=== PATIENT | male | born 1960 | race Caucasian/White ===

== ENCOUNTER 2023-12-24 05:56 | Observation (INO) ==
--- NOTE | 2023-12-21 09:40 | Anesthesiology Consultation ---
Date of Service December 21, 2023 Assessment & Plan (1) Encounter for pre-operative examination: Chart Review Chart Review: Acceptable Risk for Surgery and Patient NOT seen in Pre Admission Testing -Patient seen by cardio for routine f/u 08/04/23. Per note, pt 'doing well since ablation' for afib... 'well compensated from heart failure perspective'... 02/2023 ECHO reviewed which showed improved LVEF from previous. Infectious Disease screening: Per PAT nursing assessment on 12/16/23, No known infectious disease contacts in past 10 days or current infectious disease symptoms. No recent travel outside the country. History Surgery Operation Date: 12/24/23 12:00 Proposed Procedures p Robotic assisted Laparoscopic Partial Nephrectomy - Right - Phillip Nielsen MD Height/Weight Height: 5 ft 6 in Weight: 115.666 kg Allergies Allergy/AdvReac Type Severity Reaction Status Date / Time bee venom protein (honey bee) Allergy Intermediate Rash Verified 12/16/23 11:48 cortisone Allergy Intermediate Rash Verified 12/16/23 11:48 lisinopril AdvReac Intermediate Cough Verified 12/16/23 11:48 amoxicillin [From Augmentin] AdvReac Unknown Unknown Verified 12/16/23 11:48 clavulanic acid AdvReac Unknown Unknown Verified 12/16/23 11:48 [From Augmentin] Medications Home Medications Medication Instructions Recorded Confirmed Last Taken aspirin 81 mg tablet,delayed 81 mg PO QAM 01/08/21 12/16/23 Unknown release (Adult Low Dose Aspirin) atorvastatin 80 mg tablet (Lipitor) 80 mg PO HS 01/08/21 12/16/23 Unknown losartan 25 mg tablet (Cozaar) 25 mg PO QAM 01/08/21 12/16/23 Unknown nitroglycerin 0.4 mg sublingual 0.4 mg sublingual Q5M PRN Chest 01/08/21 12/16/23 Unknown tablet Pain apixaban 5 mg tablet (Eliquis) 5 mg PO BID 10/21/22 12/16/23 Unknown furosemide 40 mg tablet (Lasix) 40 mg PO QAM 10/21/22 12/16/23 Unknown amiodarone 200 mg tablet 200 mg PO QAM 12/16/23 12/16/23 Unknown Past Medical History Medical History (Updated 12/21/23 @ 10:28 by Kelsey Jacques PA-C) Adrenal nodule pending adrenal labs per urology CAD (coronary artery disease) s/p MS and 1 LAD stent 2017 Dilated cardiomyopathy per most recent cardio note: "likely combination of ischemic and tachycardia mediated, LVEF improved to 45% by echo in 02/2023" HFrEF (heart failure with reduced ejection fraction) ACC/AHA stage C, NYHA class II (per cardio note) History of atrial fibrillation S/P multiple cardioversions and also 1 ablation 11/2022 History of kidney stones Patient states, "I never noticed passing them but they told me I had them" History of placement of stent in LAD coronary artery 1 stent, LAD 2017 (s/p anterior MS) Hx of myocardial infarction 06/2017 [facility] (had 1 LAD stent placed)- Follows Dr Horvath Hyperlipidemia Hypertension Impaired fasting glucose Morbid obesity Prostatitis pt denies Right renal mass Past Family History Family History Father Diabetes Kidney stones Past Surgical History Surgical History (Updated 12/21/23 @ 10:09 by Kelsey Jacques PA-C) H/O arthroscopic knee surgery Right History of ankle surgery right History of cardiac radiofrequency ablation 11/2022 [facility] - Dr. Horvath d/t afib Hx of cardiac cath 1 mid LAD stent 06/2017 Hx of colonoscopy Hx of elbow surgery left S/P cervical spinal fusion 2018 hardware present - Good ROM as per patient (C5-C7 per chart review) S/P lumbar fusion hardware present Social History Smoking Status: Current every day smoker Smoking cigarettes per day: 6-7 Do You Dip or Chew Tobacco: No Hx Alcohol Use: Yes Alcohol type: beer alcohol intake frequency: a few times a month Hx Substance Use: No substance use type: does not use Lab Results Anesthesia Preop Results Results Anesthesia Widget: WBC 11.50 K/uL H 12/02/23 Hgb 15.3 g/dL (14.0-18.0) 12/02/23 Hct 45 % (42.0-52.0) 12/02/23 Plt 281 K/uL (130.0-400.0) 12/02/23 Na 135 mmol/L L 12/02/23 K 3.8 mmol/L (3.5-5.1) 12/02/23 Cl 101 mmol/L (98-107) 12/02/23 CO2 23 mmol/L (21-32) 12/02/23 BUN 9 mg/dL (7-18) 12/02/23 Creat 0.97 mg/dL (0.6-1.4) 12/02/23 Glucose Level 156 mg/dL H 12/02/23 Testing Laboratory Results (will order BSG for AM of surgery) Electrocardiogram Date: 08/04/23 Findings: + NSR @ (67bpm) possible anterior infarct, probably old, low QRS voltage precordial leads. No significant change from 01/27/23 (per cardiology interpretation at visit: 'NSR at 67bpm, anterior infarct, age indeterminate) Chest X-Ray Date: 12/02/23 Findings: + NAD Echocardiogram Date: 03/11/23 EF: 45% LVSF is mildly impaired. There is mild hypokinesis of the septal segment. Akinesis of the apical segment. No significant valve disease. Unable to adequately estimate PASP. Compared to the last study, the EF has improved Other Testing MRI Abdomen 10/19/23: 1. There is a complex partially exophytic cystic mass along the lower pole of the right kidney, associated with a solid mildly complicated/hemorrhagic component anteriorly. Both lesions demonstrate mild interval enlargement. The appearance of these findings in combination is consistent with a Bosniak IIF-III lesion. The overall configuration is most consistent with a low-grade malignancy, somewhat indolent. Recommend urologic surgical consultation/resection. 2. There is a minimally hemorrhagic, mildly enhancing 7-8mm focus within the midpole of the left kidney, sightly more apparent than on prior study, probably incidental hemorrhagic cyst, less likely metastatic focus. 3. There is increasing prominence and mild nodularity of the genu of the left adrenal. Would be difficult to entirely exclude a metastatic focus.
[~2023-12-24 05:56] MED LIST: ALLERGY Noted to ORDERED Medication SCH
[2023-12-24] MEDS: LR 15ML/HR IV SCH (06:39)
[2023-12-24] MEDS ORDERED: fentaNYL citrate PF 100 MCG/2 ML VIAL ONE ×2 (06:59→09:04)
[2023-12-24] MEDS ORDERED: MIDAZOLAM HCL 1 MG/ML 2ML VIAL ONE ×2 (06:59→09:04)
[2023-12-24] MEDS ORDERED: diphenhydrAMINE 50 MG/ML VIAL ONE (07:01)
[2023-12-24] MEDS ORDERED: ROCURONIUM BROMIDE 10 MG/ML 5 ML VIAL IV ONE ×4 (07:01→11:42)
[2023-12-24] MEDS ORDERED: SUCCINYLCHOLINE CHLORIDE 20 MG/ML 10 ML VIAL IV ONE (07:01)
[2023-12-24] MEDS ORDERED: ONDANSETRON INJ 2 MG/ML 2 ML VIAL ONE ×2 (07:01→09:04)
[2023-12-24] MEDS ORDERED: PROPOFOL IV EMULSION 10 MG/ML 20 ML VIAL IV ONE ×2 (07:01→09:04)
[2023-12-24] MEDS ORDERED: DEXAMETHASONE SOD INJ 4 MG/ML VIAL ONE ×2 (07:01→09:04)
[2023-12-24] MEDS ORDERED: GLYCOPYRROLATE 0.2 MG/ML VIAL ONE ×2 (07:01→09:04)
[2023-12-24] MEDS ORDERED: LIDOCAINE 2% 2 ML VIAL/AMP(20MG/ML) INFIL ONE ×2 (07:01→09:04)
--- NOTE | 2023-12-24 07:11 | History & Physical Bridge Note ---
Date of Service December 24, 2023 History & Physical Bridge Note I have examined the patient, reviewed the History & Physical and in the interval since the performance of the History & Physical I have noted the following changes of clinical significance: no changes noted Adrenal labs came back normal. He denies any new symptoms today. We will plan for robot-assisted right partial nephrectomy.
[2023-12-24] MEDS ORDERED: REMIFENTANIL HCL 1 MG VIAL IV ONE (07:13)
[2023-12-24] MEDS ORDERED: Nursing to Pharmacy Communication SCH (07:15)
[2023-12-24] MEDS: ceFAZolin 2000MG 2,000 MG/15 ML SYR IV SCH ×2 (07:30→20:16)
[2023-12-24] MEDS ORDERED: fentaNYL citrate PF 100 MCG/2 ML VIAL IV PRN (07:32)
[2023-12-24] MEDS ORDERED: PROMETHAZINE HCL 6.25 MG in SODIUM CHLORIDE 0.9% 50 ML IV PRN (07:32)
[2023-12-24] MEDS ORDERED: HYDROmorphone INJ 2 MG/ML SYR/VIAL IV PRN (07:32)
[2023-12-24] MEDS ORDERED: ePHEDrine sulfate 50 MG/ML AMP IV PRN (07:32)
[2023-12-24] MEDS ORDERED: ONDANSETRON INJ 2 MG/ML 2 ML VIAL IV PRN ×2 (07:32→14:09)
[2023-12-24] MEDS ORDERED: ATROPINE SULFATE 0.1 MG/ML 10ML SYR IV PRN (07:32)
[2023-12-24] MEDS ORDERED: ePHEDrine sulfate 50 MG/5 ML SYR ONE (08:36)
[2023-12-24] MEDS ORDERED: NEOSTIGMINE METHYLSULFATE 1 MG/ML 10ML VIAL ONE (09:04)
[2023-12-24] MEDS: ceFAZolin 2,000 MG/15 ML IV PUSH IV ONE (09:09)
[2023-12-24] MEDS ORDERED: HYDROmorphone INJ 2 MG/ML SYR/VIAL ONE (10:57)
[2023-12-24] MEDS ORDERED: SUGAMMADEX SODIUM 200 MG/2 ML VIAL IV ONE ×2 (10:58→12:20)
[2023-12-24] MEDS: TISSEEL FIBRIN SEALANT 10ML TOP ONE (11:32)
[2023-12-24] MEDS: FLOSEAL HEMOSTATIC MATRIX 10ML TOP ONE (11:33)
[2023-12-24] MEDS: SURGICEL ABSORB HEMOSTAT 2IN X 14IN TOP ONE (11:33)
[2023-12-24] MEDS: ceFAZolin 2000MG 2,000 MG/15 ML SYR IV ONE (11:50)
[2023-12-24] MEDS: BUPIVACAINE 0.5 % 5 MG/1 ML MPF 30ML VIAL ONE (11:50)
[2023-12-24] MEDS ORDERED: ceFAZolin 330 MG/ML 1 GM VIAL ONE (11:51)
--- NOTE | 2023-12-24 12:11 | Operative Report ---
PG Post Operative Report Pre & Post Diagnosis Operation Date: 12/24/23 07:30 Pre-Op Diagnosis: Right Renal Mass Post-Op Diagnosis: Right Renal Mass I identified the patient and participated in the time-out.: Yes Procedure Operation Date: 12/24/23 07:30 Actual Procedures p Robotic Assisted Laparoscopic Partial Nephrectomy - Right(Right) - Phillip Nielsen MD Surgeon Phillip Nielsen MD Finisher Hand LOR Plaza, LOR Saeed, Tad Euceda DO Estimated Blood Loss 25 Findings See Below Right renal mass overlying right renal cyst, partial nephrectomy was performed. Specimens Right renal mass Drains Damon catheter per urethra Anesthesia Type General Complications none Disposition Accompanied Patient To Recovery: Yes Disposition: Recovery Room Indications This is a 63-year-old male followed by urology for a suspicious renal cyst. On recent imaging this was read as Bosniak 3 and he presents to the OR today for partial nephrectomy and removal of this cyst. Description of Procedure The patient was identified and informed consent was obtained. He was marked on the right side and was brought to the operating room where general anesthesia was initiated. He was placed in a flank position with the right side elevated. All pressure points were carefully padded. A timeout was then performed. A surgical marker was used to draw a line approximately 7 cm to the left of the umbilicus, in the mid clavicular area. Anticipated port sites were marked starting approximately 2 fingerbreadths below the costal margin. Subsequent ports were anticipated to be 6 to 7 cm spaced down this line. An incision was made at the second anticipated site, then dissection was carried down to the fascia. A Veress needle was used to obtain access to the peritoneum. Good position was confirmed with a negative aspiration, appropriate drop test and low opening insufflation pressure. The abdomen was then inflated with CO2 to 15 mmHg. The first robotic port was then placed and the camera was inserted. The abdominal cavity was surveyed. No injury to intra-abdominal contents was appreciated. There were some adhesions in the right lower quadrant as well as near the gallbladder. The remaining 3 robotic ports were placed under direct visualization. A 12 mm blood donor unit assistant port was then placed in the midline above the umbilicus. The robot was then docked. His right lower quadrant adhesions were lysed sharply. I reflected the colon along the white line of Toldt to expose Gerota's fascia. The duodenum was Kocherized. Once the colon was sufficiently reflected, the gonadal vessels and left ureter were identified. These were then dissected cephalad to identify the renal hilum. He had 1 renal artery and 2 renal veins. Adequate windows were dissected to facilitate placement of bulldog clamps on the vessels. I then turned my attention toward the renal mass. On preoperative imaging it had been toward the lower pole and there was a suspicious bulge in Gerota's fascia in this area. Gerota's fascia was incised and the fat was dissected away to expose the renal mass and capsule. The intraoperative ultrasound was then introduced and used to survey this area of the kidney. The suspicious cystic mass was overlying a fairly large, simple appearing cyst. The bulldog clamps were then applied to the renal artery and the renal veins. There was good blanching of the kidney. The renal mass was sharply excised. Approximately 80-90% of the mass was overlying the cyst. Only a small rim of renal parenchyma was taken from the upper medial portion. Once the mass was free from the kidney, renorrhaphy was performed using interrupted 2-0 Vicryl sutures also secured with Hem-o-loks and Lapra-Ty's. There was good hemostasis at this point. The bulldog clips were then removed and there was slight oozing from the resection edge. 1 additional Vicryl suture was used to obtain good hemostasis. Total warm ischemia time was 14 minutes. A layer of Surgicel, Floseal and Tisseel were applied to the resection area and the hilum. The renal mass was placed in a specimen bag. Final survey of the abdomen revealed good hemostasis and no injury to intra-abdominal contents. The robot was dedocked. The specimen was extracted through the blood donor unit assistant port in the midline and was sent for analysis labeled as right renal mass. The incisions were then closed. The extraction site was closed using a deep 0 Vicryl running suture for the fascia. All wounds were anesthetized using 0.5% Marcaine. Skin was closed using running subcuticular 4-0 Monocryl for the extraction site and buried interrupted 4-0 Monocryls for the robot sites. The patient was then awakened from anesthesia and brought to the PACU in stable condition. All sponge and instrument counts were correct at the end of the case. Of note, Christelle HOROWITZ, acted as bedside blood donor unit assistant for the majority of the case, helping with initial positioning, access, retraction, dissection and with closing. LOR Saeed was at the bedside learning how to be the blood donor unit assistant. Tad Euceda DO acted as bedside blood donor unit assistant for the mass excision and renorrhaphy. I attest to the content of the Intraoperative Record and any orders documented therein. Any exceptions are noted below.
[2023-12-24] MEDS: LACTATED RINGER'S 1,000 ML IV SCH (14:05)
[2023-12-24] MEDS ORDERED: HYDROmorphone INJ 0.5 MG/0.5 ML SYR IV PRN ×2 (14:09)
[2023-12-24] MEDS ORDERED: bisacodyL 5 MG TABEC PO PRN (14:09)
[2023-12-24] MEDS ORDERED: oxyCODONE HCL IR 5 MG TAB (IMMEDIATE RELEASE) PO PRN ×3 (14:09)
--- NOTE | 2023-12-24 14:09 | Anesthesiology Progress Note ---
Date of Service December 24, 2023 Anesthesia Post Procedure Vital Signs Vital Signs: Temp Pulse Resp BP Pulse Ox O2 Del Method O2 Flow Rate 12/24/23 13:40 76 21 142/86 H 94 Nasal Cannula 4 12/24/23 13:25 74 18 131/80 93 Nasal Cannula 4 12/24/23 13:05 75 20 138/84 92 Nasal Cannula 4 12/24/23 12:50 36.5 C 77 20 153/83 H 92 Nasal Cannula 4 12/24/23 12:40 85 20 143/82 H 94 Oxymask 6 12/24/23 12:30 77 22 154/89 H 94 Oxymask 10 12/24/23 12:20 83 25 H 167/96 H 93 Oxymask 10 12/24/23 12:12 36.5 C 80 18 167/98 H 88 L Oxymask 6 12/24/23 06:18 36.9 C 66 20 146/94 H 96 Room Air Pain Intensity Abdomen: Pain Intensity: 2 Transfer of Care Handoff Completed per policy Notes Mental Status: alert / awake / arousable and participated in evaluation Patient Amnestic to Procedure: Yes Nausea / Vomiting: adequately controlled Pain: adequately controlled Airway Patency, RR, SpO2: stable & adequate BP & HR: stable & adequate Hydration State: stable & adequate Anesthetic Complications: no major complications apparent
[2023-12-24 20:14] VITALS: RESP 18
[2023-12-24] MEDS: DOCUSATE SODIUM 100 MG CAP PO SCH (20:15)
[2023-12-24] MEDS: ATORVASTATIN 40 MG TAB PO SCH (20:15)
[2023-12-25 06:26] LABS: Basophils # (auto) 0.04 K/uL (0.00-0.20); Basophils % (auto) 0.2 %; Hematocrit (blood only) 37.6 % (42.0-52.0); Hemoglobin 13.3 g/dl (14.0-18.0); Immature Granulocytes % (auto) 0.5 %; Lymphocytes # (auto) 0.84 K/uL (1.20-3.40); Lymphocytes % (auto) 3.9 %; Mean Corpuscular Hemoglobin 32.8 pg (25.0-34.0); Mean Corpuscular Hgb Conc 35.4 g/dL (32.0-36.0); Mean Corpuscular Volume 92.6 fL (80.0-100.0); Mean Platelet Volume 10.5 fL (9.4-12.4); Monocytes # (auto) 2.19 K/uL (0.11-0.59); Monocytes % (auto) 10.1 %; Neutrophils # (auto) 18.43 K/uL (1.40-6.50); Neutrophils % (auto) 85.3 %; Platelet Count 220 K/uL (130-400); RDW Coefficient of Variation 13.2 % (11.5-14.5); RDW Standard Deviation 45.1 fL (36.4-46.3); Red Blood Count 4.06 M/uL (4.70-6.10)
[2023-12-25 06:52] LABS: BUN Creatinine Ratio 14.6 (10-20); Calcium 8.9 mg/dl (8.6-10.3); Creatinine Clr Calc Pharmacy 104.5 ml/min; Potassium 4.4 mmol/L (3.5-5.1)
--- NOTE | 2023-12-25 08:27 | Urology Progress Note ---
Date of Service December 25, 2023 Assessment & Plan (1) Right renal mass: Plan: - Patient POD#1 s/p right partial nephrectomy for suspected renal malignancy - Doing well, progressing as expected - Afebrile, hemodynamically stable - Post op lab work reviewedcreatinine 0.89, WBC 21.6, hemoglobin 13.3 - Minimal pain - Tolerating regular diet - Encouraged OOB ambulation - Incisions appropriate - Damon catheter intact, patent and draining yellow urine - Discontinue Damon catheter this morning, monitor for void - Expected clinical course reviewed, all questions answered - Anticipate discharge to home later today if he continues to progress as expected - Will arrange outpatient follow-up in [address] Nielsen for pathology review and wound check Admission and Anticipated Discharge Date Admission Date: December 24, 2023 Subjective Patient seen and examined at bedside this morning. He is awake and sitting up in bed eating breakfast. No acute issues overnight. Reports mild discomfort near incisions, tolerable. He has not been utilizing pain medication. Tolerating regular diet, no nausea or vomiting. Passing flatus. Ambulated in room yesterday evening. No fever or chills. Damon intact. Review of Systems Constitutional: as per Subjective / HPI Genitourinary: + as per Subjective / HPI Physical Exam Constitutional: well developed and well nourished; no acute distress Respiratory: normal respiratory effort; no respiratory distress and no labored breathing Gastrointestinal (Abdomen): Inspection/Auscultation: abdomen normal to inspection Musculoskeletal: Head/Neck/Chest: normocephalic Skin: Surgical incisions C/D/I with dermabond, minor ecchymosis at lower right port site. Neurologic: moves all extremities and awake Psychiatric: Orientation: alert and oriented x 3 Genitourinary: Damon patent and draining clear yellow urine Results & Data Vital Signs (Past 12 Hours) Vital Signs Temp Pulse Resp BP Pulse Ox O2 Del Method O2 Flow Rate 12/25/23 07:26 37 C 79 18 128/78 91 Room Air 12/25/23 04:06 36.8 C 76 18 148/82 H Room Air 12/25/23 00:03 36.6 C 80 18 131/79 92 Room Air 12/24/23 20:39 36.4 C L 74 18 130/78 94 Nasal Cannula 2 PG Care Time/CCT Total # of Minutes Spent Total Time Spent with Patient: Total time spent is greater than 50% in coordination of care (as documented) at patient's floor/unit and/or counseling patient: Coding Level of Care Code None Diagnoses Right renal mass N28.89
[2023-12-25] MEDS: AMIODARONE 200 MG TAB PO SCH (08:47)
[2023-12-25] MEDS: LOSARTAN POTASSIUM 25 MG TAB PO SCH (08:49)
[2023-12-25] MEDS: HEPARIN SOD 5,000 UNIT/0.5 ML VIAL SQ SCH (08:55)
[2023-12-25 11:36] VITALS: BP 125/75; PULSE 76; TEMP 98.8; O2SAT 95
--- NOTE | 2023-12-25 11:44 | Discharge Summary ---
Date of Service December 25, 2023 Admission HPI Per Admitting Provider Patient with right renal mass presents for right partial nephrectomy. Admission Exam Per Admitting Provider Constitutional well developed and well nourished; no acute distress Eyes + anicteric sclerae; pupils not irregular Respiratory normal respiratory effort; no respiratory distress, does not use accessory muscles and no cough Cardiovascular well perfused Gastrointestinal (Abdomen) Inspection/Auscultation: abdomen normal to inspection; abdomen not distended Musculoskeletal Extremities: extremities normal to inspection Skin normal turgor; no rashes and no lesions Neurologic moves all extremities and awake Psychiatric Orientation: alert and oriented x 3 Principal Diagnosis Right renal mass Discharge Exam Constitutional well developed and well nourished; no acute distress Respiratory normal respiratory effort; no respiratory distress and no labored breathing Gastrointestinal (Abdomen) Inspection/Auscultation: abdomen normal to inspection Musculoskeletal Head/Neck/Chest: normocephalic Skin Incision C/D/I with dermabond Neurologic moves all extremities and awake Psychiatric Orientation: alert and oriented x 3 Discharge Data Allergies Allergy/AdvReac Type Severity Reaction Status Date / Time bee venom protein (honey bee) Allergy Intermediate Rash Verified 12/24/23 06:15 cortisone Allergy Intermediate Rash Verified 12/24/23 06:15 lisinopril AdvReac Intermediate Cough Verified 12/24/23 06:15 amoxicillin [From Augmentin] AdvReac Mild Rash Verified 12/24/23 06:15 clavulanic acid AdvReac Mild Rash Verified 12/24/23 06:15 [From Augmentin] Procedures Performed Operation Date: 12/24/23 07:30 Actual Procedures p Robotic Assisted Laparoscopic Partial Nephrectomy - Right(Right) - Phillip Nielsen MD Hospital Course (1) Right renal mass: - Patient POD#1 s/p right partial nephrectomy for suspected renal malignancy - Doing well, progressing as expected - Afebrile, hemodynamically stable - Post op lab work reviewedcreatinine 0.89, WBC 21.6, hemoglobin 13.3 - Minimal pain - Tolerating regular diet - Encouraged OOB ambulation - Incisions appropriate - Damon catheter intact, patent and draining yellow urine - Discontinue Damon catheter this morning, monitor for void - Expected clinical course reviewed, all questions answered - Anticipate discharge to home later today if he continues to progress as expected - Will arrange outpatient follow-up in [address] Nielsen for pathology review and wound check Total Time Total Time Spent Total Time Spent (In Minutes): 29 Discharge Plan Discharge Items Patient Disposition: Home - Self-Care Reason For Visit: RENAL MASS Discharge Diagnosis: Renal mass, concern for malignancy Activity: Per Instructions section Lifting: No more than 10 pounds Bathing Comment: Okay to shower after discharge Sexual Activity: Wait until after follow-up appointment Exercise/Sports: Wait until after follow-up appointment Driving/Machine Use: No driving while taking prescription pain medication Non-emergency contact: Surgeon and Urologist Call non-emergency contact if: your symptoms worsen, your pain is not controlled, your temperature is above 101, your wound has increased redness, your wound has increased drainage and your wound pain has increased Follow-up/Referrals: Fermin Brice M.D. [Primary Care Provider] - Diet: Regular Addtl Attending Provider Instructions: The surgery you had was: Robot-assisted partial nephrectomy Please take all medications as prescribed and keep all follow-ups as scheduled. Please call our office at [phone] with any questions, concerns or need to reschedule appointments for any reason. We are happy to assist you. Medications: Take Tylenol every 6 hours for baseline pain control If you are prescribed narcotics such as oxycodone, please take it according to the instructions on the label. Activity/Recovering at home: We recommend having someone with you for the first few days after surgery to help care for you. It is okay to shower tomorrow. Please avoid swimming, bathing or using hot tub until incisions are well healed. Avoid driving until you are not requiring pain medication any further. Walk at least a few times a day. Increase your distance, as you feel able. Stairs in your home are okay. Please avoid strenuous or sexual activity until your follow-up. No lifting anything more than 10 pounds for 6 to 8 weeks Use a stool softener (i.e. Colace) to prevent constipation, especially the first two weeks post operatively. You should not be straining/pushing to have a bowel movement. Follow-up: We will have you come to the urology office in 12 weeks for a wound check. Call [facility] at [phone] if you experience: Chest pain or trouble breathing (call 531 or go to the hospital). Fever of 101F or higher Symptoms of infection at incision site, including redness or swelling, warmth, or bad-smelling drainage Pain that is not controlled with medicines Pending Studies at Discharge: Yes (Pathology) Stand-Alone Forms: My [facility] Medications and DC Order Prescriptions: New docusate sodium [Colace] 100 mg capsule 100 mg PO BID Qty: 60 0RF Rx Instructions: Take twice daily for 2 weeks, then as needed for constipation. oxycodone-acetaminophen [Percocet] 5-325 mg tablet 1 tab PO TID PRN (Reason: pain) Qty: 7 0RF Continued aspirin [Adult Low Dose Aspirin] 81 mg tablet,delayed release (DR/EC) 81 mg PO QAM losartan [Cozaar] 25 mg tablet 25 mg PO QAM nitroglycerin 0.4 mg tablet, sublingual 0.4 mg sublingual Q5M PRN (Reason: Chest Pain) Rx Instructions: do not exceed 3 doses per episode atorvastatin [Lipitor] 80 mg tablet 80 mg PO HS furosemide [Lasix] 40 mg tablet 40 mg PO QAM amiodarone [Pacerone] 200 mg Tablet 200 mg PO QAM Held Eliquis 5 mg tablet 5 mg PO BID Hold Instructions: Resume on 12/26/23. Resume Eliquis on 12/25 Discharge Orders: Discharge Order (Routine); Ordered 12/25/23 Ordered By: Christelle Ernst Admission Data Admit Date/Time: 12/24/23 12:28 Attending Provider: Phillip Nielsen Admit Provider: Phillip Nielsen Primary Care Provider: Fermin Brice Other Interventions: Discharge Summary Assessment (RN) Last Done: 12/25/23 11:57 Coding Level of Care Code 06895 IN/OBS DISCH 30 MIN/LESS Diagnoses Right renal mass N28.89
== END 2023-12-25 13:39 | disposition home or self-care (01) ==
LOC: ASU 05:56 → INTOOBSV 12:28 → 3E 12:28